=== PATIENT | male | born 1980 | race Caucasian/White ===

== ENCOUNTER 2016-12-04 08:47 | Inpatient (IN) | payer BC, OTHER ==
[~2016-12-04] VITALS: Ht 170.2 cm; Wt 65.8 kg
[2016-12-05] MEDS ORDERED: LORAZEPAM 1 MG TABLET PO PRN (17:00)
[2016-12-05] MEDS ORDERED: MIRALAX 17 GM POWD.PACK PO PRN (17:00)
[2016-12-05] MEDS ORDERED: THIAMINE HCL 200 MG/2 ML VIAL IM ONE (17:00)
[2016-12-05] MEDS ORDERED: ONDANSETRON ODT 4 MG TAB.RAPDIS SL PRN (17:00)
[2016-12-05] MEDS ORDERED: ACETAMINOPHEN 325 MG TABLET PO PRN (17:00)
[2016-12-05] MEDS ORDERED: LORAZEPAM 2 MG/1 ML VIAL IM PRN (17:00)
[2016-12-05] MEDS ORDERED: PROMETHAZINE HCL 25 MG/1 ML VIAL IM PRN (17:00)
[2016-12-05] MEDS ORDERED: LOPERAMIDE HCL 2 MG CAPSULE PO PRN ×2 (17:00)
[2016-12-05 18:00] VITALS: BP 106/63
[2016-12-05 18:05] LABS: *AMPHETAMINE, URINE NEGATIVE (NEGATIVE); *BARBITURATE, URINE NEGATIVE (NEGATIVE); *CANNABINOID, URINE NEGATIVE (NEGATIVE); *COCCAINE, URINE NEGATIVE (NEGATIVE); *OPIATE, URINE NEGATIVE (NEGATIVE); *PHENCYCLIDINE SCREEN,URINE NEGATIVE (NEGATIVE)
[2016-12-05] MEDS ORDERED: ALPR0.255 PO (18:21)
[2016-12-05] MEDS ORDERED: BISM262T18 PO (18:21)
[2016-12-05] MEDS ORDERED: GABA-534 PO (18:21)
[2016-12-05] MEDS ORDERED: DULO20CA18 PO (18:21)
[2016-12-05] MEDS ORDERED: RIFA550T PO (18:21)
[2016-12-05] MEDS ORDERED: THIA100T13 GT (18:21)
[2016-12-05] MEDS ORDERED: FOLI1TAB16 PO (18:21)
[2016-12-05] MEDS: LORAZEPAM 1 MG TABLET PO PRN ×2 (18:30→21:50)
--- NOTE | 2016-12-05 18:36 | NUR ---
PRE ADMISSION: A 36 Y O MALE ADMITTED FOR ETOH DEPENDENCE. SKIN CHECK DONE. ECCHYMOTIC AREAS TO BILATERAL ARMS FROM IV'S IN RECENT HOSPITAL STAY. NO WOUNDS NOTED. PT HAS JAUNDICED SKIN AND BILATERAL SCLERAS. HE IS TREMULOUS AND REPORTS WEAKNESS IN LEGS. HIS GAIT IS SLIGHTLY UNSTEADY. FALL PRECAUTIONS NOTED. 1:1 SITTER AT BEDSIDE FOR SAFETY. HE STATES HE DRINKS 1 LITER OF VODKA DAILY AND HAS ALCOHOL HEPATITIS AND CIRRHOSIS.HE HAS NOT DRANK SINCE 11/28/16. HE WAS HOSPITALIZED ON 11/29 UNTIL 12/03 FOR RETRACTABLE VOMITING. HE WAS PRESCRIBED XANAX ON DISCHARGE AND STATES HE HAS TAKEN 4 PILLS SINCE FRIDAY. CIWA 5. ATIVAN 1 MG PO GIVEN PRN. VSS. PT IS RESTING IN BED. WILL CONTINUE TO PROVIDE SAFE AND SUPPORTIVE ENVIRONMENT. WILL ENDORSE TO NIGHT NURSE.
[2016-12-05 18:47] LABS: HEMATOCRIT 29.9 % (40.0-50.0); HEMOGLOBIN 10.1 g/dL (14.0-18.0); MEAN CORPUSCULAR HEMOGLOBIN 34.2 uug (27.0-31.0); MEAN CORPUSCULAR HGB CONC 34 g/dL (32.0-37.0); MEAN CORPUSCULAR VOLUME 101.4 fL (82.0-92.0); PLATELET COUNT (AUTO) 94 K/uL (150-450); RED BLOOD CELL COUNT(AUTO) 2.95 MIL/uL (4.70-6.10); RED CELL DISTRIBUTION WIDTH 15.8 % (11.5-14.5); WHITE BLOOD COUNT (AUTO) 4.5 K/uL (4.0-11.2)
[2016-12-05 18:56] LABS: ALANINE AMINOTRANSFERASE 24 U/L (16-63); ALBUMIN 2.2 g/dL (3.4-5.0); ALKALINE PHOSPHATASE 295 U/L (50-136); AMYLASE 31 U/L (25-115); ASPARTATE AMINOTRANSFERASE 97 U/L (15-37); BILIRUBIN,TOTAL 10.2 mg/dL (0.2-1.0); CALCIUM 7.7 mg/dL (8.5-10.1); CARBON DIOXIDE 28 mmol/L (21-32); CHLORIDE 101 mmol/L (98-107); CREATININE 0.7 mg/dL (0.6-1.3); GFR 128 mL/min (>60); GLUCOSE 106 mg/dL (74-106); LIPASE 158 U/L (73-393); MAGNESIUM 1.3 mg/dL (1.8-2.4); POTASSIUM 3.7 mmol/L (3.5-5.1); SODIUM SERUM 135 mmol/L (136-145); TOTAL PROTEIN, SERUM 5.7 g/dL (6.4-8.2); UREA NITROGEN, BLOOD 4 mg/dL (7-18)
[2016-12-05 19:05] LABS: THYROID STIMULATING HORMONE 3.474 mIU/mL (0.358-3.740)
[2016-12-05 19:12] LABS: ETHANOL < 3 MG/DL (0-0)
[2016-12-05 19:52] LABS: BAND % (MANUAL) 3 % (0-10); EOSINOPHILS % (MANUAL) 1 % (0-8); LYMPHOCYTES % (MANUAL) 18 % (20-40); MONOCYTES % (MANUAL) 12 % (2-10); NEUTROPHILS % (MANUAL) 66 % (42-75)
[2016-12-05 19:53] LABS: ANISOCYTOSIS 1+
[2016-12-05 20:00] VITALS: BP 97/62
--- NOTE | 2016-12-05 20:10 | NUR ---
ADMISSION Received pre-admission report from day shift nurse. Pt is lying in bed resting with a 1:[address] for safety due to tremors and unsteady gait. He is a 36 yo male who [facility] today at 1745. He is A&O x4 and ambulatory. Vital signs are B/P 97/62, HR 86, RR 16, O2 sat 97%, T 98.0, pain 0/10. Pt is 5'7" and weighs 145lb. He has a PMH of alcoholic hepatitis, cirrhosis, pilonidial cyst removal x2, seizure x2 r/t ETOH w/d, and anxiety. Last seizure was in 2016. He was hospitalized in [place] from 11/29/16-12/03/16 for intractable vomiting, alcoholic hepatitis, and cirrhosis. Lung sounds clear, PERRLA, brisk capillary refill, bowel sounds present, hand civil structural engineer equal and strong, skin is intact. Skin color is jaundiced and sclera is yellow. History of Use Vodka 1 Liter per day for the past 3 months. He has a 9 year history of ETOH use. Last drank 1 Liter on 11/28/16. He was prescribed Xanax 0.25mg upon discharge from the hospital on 12/03/16 and reported taking 4 tabs total since. Treatment History [place], [place] 2016 [place], [place] [facility] [place], [place] He smokes 2 cigarettes per day. Symptoms when he doesn't use include nausea, vomiting, diarrhea, and tremors. His longest period of sobriety was 3 months and this was 6 months ago. Pt reported that he came to treatment because he wants to get sober and stay sober. He currently has anxiety, tremors and moist skin. CIWA on admission was 5. He reports that his primary care physician recently retired. His "liver specialist" is Dr. Paul at [facility]. Pt denies SI/HI. aware of patients admission. Pt was educated regarding use of the call light and questions answered. Fall and seizure precautions in place. Bed is down with call light in reach.
[2016-12-05] MEDS ORDERED: MAGNESIUM OXIDE 400 MG TABLET PO ONE (21:00)
[2016-12-05] MEDS: RIFAXIMIN 550 MG TABLET PO SCH (21:50)
--- NOTE | 2016-12-05 21:50 | NUR ---
PRN Ativan administration Pt reports feeling moderately anxious, mildly agitated, has moist skin, with slight full body tremors. CIWA score 6. PRN Ativan administered.
[2016-12-06] VITALS: BP 94/55
[2016-12-06 04:00] VITALS: BP 94/58
--- NOTE | 2016-12-06 07:25 | NUR ---
END OF SHIFT Report provided to day shift nurse. Pt is lying in bed resting with a 1:[address] for safety due to unsteady gait r/t tremors and weakness. He is A&O x4 and ambulatory. NKA, full code status, and on a regular diet. He has a PMH alcoholic hepatitis, cirrhosis, pilonidal cyst removal. Withdrawal related seizure x2 with the last one being in 2016. On admission he reported drinking vodka 1L per day for the past 3 months. He has a 9 year history of ETOH use. Pt is ordered PRN medications for management of withdrawal symptoms. Skin and sclera are jaundiced. PRN Ativan administered 1x. Last CIWA was 4. He drank 1600mL and slept for 9 hours. Fall and seizure precautions in place. Bed is down with call light in reach.
--- NOTE | 2016-12-06 07:44 | NUR ---
BEGINNING OF SHIFT Patient endorsement report received from shift mechanic nurse, all pertinent information discussed. Patient is a 36 year old male admitted on 12/05/2016 with admitting Dx: ETOH dependence. Patient with past medical history of: seizure x2 r/t withdrawal last one in 2016, etoh hepatitis, cirrhosis, and pilonidal cyst removal x2. Patient with substance use history of: etoh 1 liter of vodka per day for 3 months with history of 9 years usage. Patient currently with no ongoing taper, but has prn medications as needed for s/sx of withdrawal as ordered, , will monitor closely. As per shift mechanic patient slept for 9 hours, and received PRN: Ativan as per shift mechanic, medications were effective. Patients last ciwa score of: 4. Patient received in bed with eyes closed respirations are even and unlabored. Responsive to verbal stimuli, educated regarding plan of care for the day and medication regimen, safety measures in place, call light with in reach, will continue to monitor closely.
[2016-12-06 08:07] VITALS: BP 90/62
[2016-12-06 08:08] LABS: AMMONIA 34 umol/L (11-32)
[2016-12-06 08:14] LABS: CALCIUM 7.9 mg/dL (8.5-10.1); CARBON DIOXIDE 24 mmol/L (21-32); CHLORIDE 105 mmol/L (98-107); CREATININE 0.6 mg/dL (0.6-1.3); GFR > 130 mL/min (>60); GLUCOSE 82 mg/dL (74-106); MAGNESIUM 1.4 mg/dL (1.8-2.4); POTASSIUM 3.3 mmol/L (3.5-5.1); SODIUM SERUM 138 mmol/L (136-145); UREA NITROGEN, BLOOD 4 mg/dL (7-18)
[2016-12-06] MEDS: MULTIVITAMINS,THERAPEUTIC TABLET PO SCH (08:57)
[2016-12-06] MEDS: RIFAXIMIN 550 MG TABLET PO SCH ×2 (08:57→21:15)
[2016-12-06] MEDS: FOLIC ACID 1 MG TABLET PO SCH (08:57)
[2016-12-06] MEDS: THIAMINE HCL 100 MG TABLET PO SCH (08:58)
[2016-12-06] MEDS: LORAZEPAM 1 MG TABLET PO PRN (08:58)
--- NOTE | 2016-12-06 08:58 | NUR ---
PRN ATIVAN 0900 assessment patient presented with fine tremors, barely sweat, anxiety and mild agitation with ciwa score of: 6 as per MD orders, adminstered PRN ativan 1 mg po at 0858, will monitor effectiveness.
[2016-12-06] MEDS: DOCUSATE SODIUM 250 MG CAPSULE PO SCH (08:59)
[2016-12-06] MEDS ORDERED: TUBERCULIN,PURIF.PROT.DERIV. 5 TU/0.1 ML TEST ID ONE (09:00)
--- NOTE | 2016-12-06 09:58 | NUR ---
ATIVAN REASSESSMENT Patient reports detox medication effective at reducing withdrawal symptoms, reports feeling less anxiety, will continue to monitor closely.
[2016-12-06 12:59] VITALS: BP 94/60
[2016-12-06] MEDS: LORAZEPAM 1 MG TABLET PO SCH ×3 (13:00→21:14)
[2016-12-06] MEDS ORDERED: MAGNESIUM OXIDE 400 MG TABLET PO ONE (13:45)
[2016-12-06] MEDS ORDERED: POTASSIUM CHLORIDE 10 MEQ CAPSULE.SA PO ONE ×2 (14:00→16:00)
[2016-12-06 16:30] VITALS: BP 128/63
--- NOTE | 2016-12-06 19:11 | NUR ---
END OF SHIFT Patient alert and oriented x4, compliant with therapeutic plan of care. Patient with admitting Dx: ETOH dependence, Patient was started on a 3 day Ativan taper as ordered, taper began at 1300. Patient encouraged adequate PO fluid intake as tolerated, patient appears jaundice, sclera yellow, also reported one episode of loose stool, no episodes of N/V noted. 0900 assessment patient presented with fine tremors, barely sweats, anxiety and mild agitation with ciwa score of: 6; 1300 assessment assessment patient presented with fine tremors, barely sweats, anxiety and mild agitation with ciwa score of: 6. 1700 assessment patient presented with: fine tremors, barely sweat and anxiety with ciwa score of: 5. encouraged patient to attend group therapies/sessions to learn new coping skills to prevent relapse, patient denies SI/HI. During shift administered PRN: Ativan at 0858, Safety measures in place. Call light with in reach, will continue to monitor closely. Patient endorsement report given to mold shifter nurse, all pertinent information discussed.
--- NOTE | 2016-12-06 19:15 | NUR ---
START OF SHIFT Received 36 year old male patient admitted on 12/05/16 for ETOH dependency. Pt is full code with NKA. He reports a PMHx of seizure x2 related to withdrawal in 2016, ETOH hepatitis, cirrhosis, and pilonidal cyst removal x2. He reports using vodka 1 liter daily for 3 months. Last dose was 1 L on 11/28/16. He is placed on a 3 day Ativan taper and tolerating well. Per endorsement, pt with Mg of 1.4 and K of 3.3 which were replaced. He is on a 1:1 for unsteady gait. Pt is alert and oriented x4, breathing is even and unlabored, safety measures in place. Will continue to monitor.
[2016-12-06 20:00] VITALS: BP 96/52
[2016-12-06] MEDS: DICYCLOMINE HCL 20 MG TABLET PO PRN (21:14)
--- NOTE | 2016-12-06 21:25 | NUR ---
PRN IMODIUM Pt complains of diarrhea. PRN Imodium administered as ordered. Breathing even and unlabored, safety measures in place. Will continue to monitor
--- NOTE | 2016-12-07 | NUR ---
VITALS 0000 vitals refused by pt at beginning of shift. Pt stated, " I want to sleep." Pt lying in bed with eyes closed noted to be asleep. Respirations 16, breathing is even and unlabored, safety measures in place. Will continue to monitor. Addendum: 12/07/16 at 0236 by KAREL BROWNE RN Amended: Links added.
--- NOTE | 2016-12-07 04:00 | NUR ---
VITALS 0400 vitals refused by pt at beginning of shift. Pt stated, " I want to sleep." Pt lying in bed with eyes closed noted to be asleep. Respirations 16, breathing is even and unlabored, safety measures in place. Will continue to monitor.
--- NOTE | 2016-12-07 07:10 | NUR ---
END OF SHIFT Pt is a 36 year old male patient admitted on 12/05/16 for ETOH dependency. Pt is full code with NKA. He reports a PMHx of seizure x2 related to withdrawal in 2016, ETOH hepatitis, cirrhosis, and pilonidal cyst removal x2. He is placed on a 3 day Ativan taper and tolerating well. He is on a 1:1 for unsteady gait. He received PRN Imodium, no loose stools reported during shift. Will endorse to oncoming shift to monitor. He slept a total of 9 hrs, Intake: 1298 mL, Void: x3, BM:0, CIWA:5. Pt remains alert and oriented x4, breathing is even and unlabored, safety measures in place. Will endorse to oncoming nurse.
--- NOTE | 2016-12-07 07:58 | NUR ---
BEGINNING OF SHIFT Patient endorsement report received from boiler plant operator nurse, all pertinent information discussed. Patient is a 36 year old male admitted on 12/05/2016 with admitting Dx: ETOH dependence. Patient with past medical history of: seizure x2 r/t withdrawal last one in 2016, etoh hepatitis, cirrhosis, and pilonidal cyst removal x2. Patient with substance use history of: etoh 1 liter of vodka per day for 3 months with history of 9 years usage. Patient currently with ongoing 3 day Ativan taper as ordered, is to begin day 2 of taper, will monitor closely. As per boiler plant operator patient slept for 9 hours, and received PRN: Imodium for diarrhea as per boiler plant operator, medications were effective, no episodes of diarrhea during boiler plant operator. Patients last ciwa score of: 5. Patient received in bed with eyes closed respirations are even and unlabored. Responsive to verbal stimuli, educated regarding plan of care for the day and medication regimen, safety measures in place, call light with in reach, will continue to monitor closely.
[2016-12-07 08:10] LABS: HEMATOCRIT 29.3 % (40.0-50.0); HEMOGLOBIN 9.8 g/dL (14.0-18.0); MEAN CORPUSCULAR HEMOGLOBIN 34.1 uug (27.0-31.0); MEAN CORPUSCULAR HGB CONC 33 g/dL (32.0-37.0); MEAN CORPUSCULAR VOLUME 102.2 fL (82.0-92.0); PLATELET COUNT (AUTO) 105 K/uL (150-450); RED BLOOD CELL COUNT(AUTO) 2.86 MIL/uL (4.70-6.10); WHITE BLOOD COUNT (AUTO) 3.4 K/uL (4.0-11.2)
[2016-12-07 08:31] LABS: ALANINE AMINOTRANSFERASE 19 U/L (16-63); ALBUMIN 1.9 g/dL (3.4-5.0); ALKALINE PHOSPHATASE 266 U/L (50-136); ASPARTATE AMINOTRANSFERASE 78 U/L (15-37); BILIRUBIN,DIRECT 7.8 mg/dL (0.0-0.2); BILIRUBIN,TOTAL 8.8 mg/dL (0.2-1.0); CALCIUM 8.1 mg/dL (8.5-10.1); CARBON DIOXIDE 26 mmol/L (21-32); CHLORIDE 104 mmol/L (98-107); CREATININE 0.6 mg/dL (0.6-1.3); GFR > 130 mL/min (>60); GLUCOSE 115 mg/dL (74-106); MAGNESIUM 1.6 mg/dL (1.8-2.4); PHOSPHOROUS 2.8 mg/dL (2.5-4.9); POTASSIUM 3.9 mmol/L (3.5-5.1); SODIUM SERUM 137 mmol/L (136-145); TOTAL PROTEIN, SERUM 5.3 g/dL (6.4-8.2); UREA NITROGEN, BLOOD 3 mg/dL (7-18)
[2016-12-07] MEDS: DOCUSATE SODIUM 250 MG CAPSULE PO SCH (09:00)
[2016-12-07 09:04] VITALS: BP 93/67
[2016-12-07] MEDS: FOLIC ACID 1 MG TABLET PO SCH (09:06)
[2016-12-07] MEDS: MULTIVITAMINS,THERAPEUTIC TABLET PO SCH (09:06)
[2016-12-07] MEDS: RIFAXIMIN 550 MG TABLET PO SCH ×2 (09:07→20:46)
[2016-12-07] MEDS: LORAZEPAM 1 MG TABLET PO SCH ×3 (09:07→20:46)
[2016-12-07] MEDS: THIAMINE HCL 100 MG TABLET PO SCH (09:07)
[2016-12-07 09:14] LABS: EOSINOPHILS % (MANUAL) 4 % (0-8); LYMPHOCYTES % (MANUAL) 33 % (20-40); MONOCYTES % (MANUAL) 19 % (2-10); NEUTROPHILS % (MANUAL) 44 % (42-75); PLATELET ESTIMATE SLIGHT DECREASED
[2016-12-07 09:15] LABS: ANISOCYTOSIS 1+; HYPOCHROMASIA 1+
[2016-12-07] MEDS ORDERED: MAGNESIUM OXIDE 400 MG TABLET PO ONE (11:15)
[2016-12-07 12:15] LABS: HCV AB 0.1 s/co ratio (0.0-0.9); HEPATITIS B CORE AB, IgM Negative (Negative); HEPATITIS B SURFACE AG Negative (Negative)
[2016-12-07 14:23] VITALS: BP 95/65
[2016-12-07 17:50] VITALS: BP 91/66
--- NOTE | 2016-12-07 18:50 | NUR ---
END OF SHIFT Patient alert and oriented x4, compliant with therapeutic plan of care. Patient with admitting Dx: ETOH dependence, Patient was started on a 3 day Ativan taper as ordered, continues with day 2 of taper, well toelrated, no ASE noted. Patient encouraged adequate PO fluid intake as tolerated, patient appears jaundice, sclera yellow. 0900 assessment patient presented with fine tremors, barely sweating, and anxiety with ciwa score of: 5, 1300 assessment patient presented with fine tremors, barely sweating, and anxiety with ciwa score of: 5; 1700 assessment patient presented with fine tremors, barely sweating, and anxiety with ciwa score of: 5 encouraged patient to attend group therapies/sessions to learn new coping skills to prevent relapse, patient denies SI/HI. During shift administered no PRNs during shift. Cotninues with 1: 1 sitter for safety precautions. Patient endorsement report given to shift foreman nurse, all pertinent information discussed.
--- NOTE | 2016-12-07 19:15 | NUR ---
START OF SHIFT Received 36 year old male patient admitted on 12/05/16 for ETOH dependency. Pt is full code with NKA. He reports a PMHx of seizure x2 related to withdrawal in 2016, ETOH hepatitis, cirrhosis, and pilonidal cyst removal x2. He reports using vodka 1 liter daily for 3 months. Last dose was 1 L on 11/28/16. He is placed on a 3 day Ativan taper and tolerating well. Per endorsement, Mg was replaced. He continues on a 1:1 for unsteady gait. Pt is alert and oriented x4, breathing is even and unlabored, safety measures in place. Will continue to monitor.
[2016-12-07 20:00] VITALS: BP 96/52
--- NOTE | 2016-12-08 | NUR ---
VITALS 0000 refused by pt at beginning of shift. Pt lying in bed with eyes closed noted to be asleep. Respirations 16, breathing is even and unlabored, safety measures in place. Will continue to monitor. Addendum: 12/08/16 at 0121 by KAREL BROWNE RN Amended: Links added.
--- NOTE | 2016-12-08 04:00 | NUR ---
VITALS 0400 refused by pt at beginning of shift. Pt lying in bed with eyes closed noted to be asleep. Respirations 16, breathing is even and unlabored, safety measures in place. Will continue to monitor.
--- NOTE | 2016-12-08 07:06 | NUR ---
END OF SHIFT Pt is a 36 year old male patient admitted on 12/05/16 for ETOH dependency. Pt is full code with NKA. He reports a PMHx of seizure x2 related to withdrawal in 2016, ETOH hepatitis, cirrhosis, and pilonidal cyst removal x2. He is placed on a 3 day Ativan taper and tolerating well. He continues on a 1:1 for unsteady gait. He did not receive or request PRN medications. He slept a total of 7 hrs, Intake: 2710 mL, Void:x5 BM:x1 CIWA: 5. Pt remains alert and oriented x4, breathing is even and unlabored, safety measures in place. Endorsed to oncoming shift.
--- NOTE | 2016-12-08 07:30 | NUR ---
Start of shift note; Received report from night nurse. Patient is a 36 year old male admitted on 12/05/2016 for ETOH dependence. Patient with past medical history of: seizure x2 due to withdrawal last episode in 2016, hepatitis, cirrhosis, and pilonidal cyst removal x2. Patient with substance use history of ETOH 1 liter of vodka per day for 3 months with history of 9 years usage. Patient currently with ongoing 3 day Ativan taper as ordered, will monitor closely. Patient slept for 9 hours. Patient's last CIWA score of 5. Patient remained on 1:1 supervision for safety. Patient received in bed with eyes closed respirations are even and unlabored. Responsive to verbal stimuli, educated regarding plan of care for the day and medication regimen, safety measures in place, call light with in reach, will continue to monitor closely.
[2016-12-08 08:00] VITALS: BP 92/62
[2016-12-08 08:02] LABS: HEMATOCRIT 30.8 % (40.0-50.0); HEMOGLOBIN 10.5 g/dL (14.0-18.0); MEAN CORPUSCULAR HEMOGLOBIN 34.5 uug (27.0-31.0); MEAN CORPUSCULAR HGB CONC 34 g/dL (32.0-37.0); MEAN CORPUSCULAR VOLUME 101.2 fL (82.0-92.0); PLATELET COUNT (AUTO) 127 K/uL (150-450); RED BLOOD CELL COUNT(AUTO) 3.05 MIL/uL (4.70-6.10); RED CELL DISTRIBUTION WIDTH 16.2 % (11.5-14.5)
[2016-12-08 08:29] LABS: ALANINE AMINOTRANSFERASE 25 U/L (16-63); ALBUMIN 2.2 g/dL (3.4-5.0); ALKALINE PHOSPHATASE 278 U/L (50-136); ASPARTATE AMINOTRANSFERASE 84 U/L (15-37); BILIRUBIN,DIRECT 7.3 mg/dL (0.0-0.2); BILIRUBIN,TOTAL 8.4 mg/dL (0.2-1.0); CALCIUM 8.2 mg/dL (8.5-10.1); CARBON DIOXIDE 29 mmol/L (21-32); CHLORIDE 103 mmol/L (98-107); CREATININE 0.6 mg/dL (0.6-1.3); GFR > 130 mL/min (>60); GLUCOSE 83 mg/dL (74-106); MAGNESIUM 1.6 mg/dL (1.8-2.4); POTASSIUM 3.9 mmol/L (3.5-5.1); SODIUM SERUM 138 mmol/L (136-145); TOTAL PROTEIN, SERUM 5.7 g/dL (6.4-8.2); UREA NITROGEN, BLOOD 4 mg/dL (7-18)
[2016-12-08 08:35] LABS: FOLIC ACID 11.4 NG/ML (8.6-58.9); IRON, SERUM 96 ug/dL (50-175)
[2016-12-08 08:41] LABS: WHITE BLOOD COUNT (AUTO) 4.8 K/uL (4.0-11.2)
[2016-12-08] MEDS: DOCUSATE SODIUM 250 MG CAPSULE PO SCH ×2 (09:00→09:14)
[2016-12-08] MEDS: THIAMINE HCL 100 MG TABLET PO SCH (09:14)
[2016-12-08] MEDS: FOLIC ACID 1 MG TABLET PO SCH (09:14)
[2016-12-08] MEDS: MULTIVITAMINS,THERAPEUTIC TABLET PO SCH (09:14)
[2016-12-08] MEDS: RIFAXIMIN 550 MG TABLET PO SCH ×2 (09:14→20:59)
[2016-12-08] MEDS: LORAZEPAM 1 MG TABLET PO SCH ×2 (09:14→20:58)
[2016-12-08 12:00] VITALS: BP 98/58
[2016-12-08] MEDS ORDERED: MAGNESIUM OXIDE 400 MG TABLET PO ONE (13:00)
--- NOTE | 2016-12-08 13:18 | NUR ---
Magnesium; Magnesium Oxide 800mg PO given for supplement d/t low magnesium level.
[2016-12-08 14:06] LABS: BAND % (MANUAL) 1 % (0-10); BASOPHILS % (MANUAL) 1 % (0-2); EOSINOPHILS % (MANUAL) 2 % (0-8); LYMPHOCYTES % (MANUAL) 35 % (20-40); MONOCYTES % (MANUAL) 16 % (2-10); NEUTROPHILS % (MANUAL) 45 % (42-75)
[2016-12-08 14:07] LABS: ANISOCYTOSIS 1+; PLATELET ESTIMATE DECREASED
--- NOTE | 2016-12-08 15:05 | NUR ---
and P.T. communication; MD notified of patient's current LAB results. MD ordered repeat CBC, BMP, LFT, magnesium for tomorrow AM. Physical therapist evaluated patient, patient was educated regarding lower extremity exercises to strengthen BLE, patient verbalized understanding.
[2016-12-08 16:00] VITALS: BP 90/58
--- NOTE | 2016-12-08 18:22 | NUR ---
End of shift note; Patient is AOX4. Patient is a 36 year old male admitted on 12/05/2016 for ETOH dependence. Patient with past medical history of: seizure x2 due to withdrawal last episode in 2016, hepatitis, cirrhosis, and pilonidal cyst removal x2. Patient with substance use history of ETOH 1 liter of vodka per day for 3 months with history of 9 years usage. Patient was placed on 3 day Ativan taper as ordered, no adverse reactions noted. Patient's last CIWA score of 2. Patient remained on 1:1 supervision for safety d/t unsteady gait. Patient remained compliant with treatment plan. Safety measures in place, call light with in reach. Met all needs.
--- NOTE | 2016-12-08 19:15 | NUR ---
START OF SHIFT Received 36 year old male patient admitted on 12/05/16 for ETOH dependency. Pt is full code with KATY. He reports a PMHx of seizure x2 related to withdrawal in 2016, ETOH hepatitis, cirrhosis, and pilonidal cyst removal x2. He reports using vodka 1 liter daily for 3 months. Last dose was 1 L on 11/28/16. He is placed on a 3 day Ativan taper and tolerating well. Per endorsement, he did not receive or request PRN medications. He was evaluated by PT and continues on a 1:1 for unsteady gait. Pt is alert and oriented x4, breathing is even and unlabored, safety measures in place. Will continue to monitor.
[2016-12-08 20:00] VITALS: BP 100/55
[2016-12-08] MEDS: DICYCLOMINE HCL 20 MG TABLET PO PRN (20:58)
--- NOTE | 2016-12-09 | NUR ---
VITALS 0000 refused by pt at beginning of shift. Pt lying in bed with eyes closed noted to be asleep. Respirations 16, breathing is even and unlabored, safety measures in place. Will continue to monitor.
--- NOTE | 2016-12-09 07:18 | NUR ---
END OF SHIFT Pt is a 36 year old male patient admitted on 12/05/16 for ETOH dependency. Pt is full code with NKA. He reports a PMHx of seizure x2 related to withdrawal in 2016, ETOH hepatitis, cirrhosis, and pilonidal cyst removal x2. He is placed on a 3 day Ativan taper and tolerating well. He did not receive or request PRN medications. He slept a total of 7 hrs, Intake: 1300 mL, Void: x5, BM:0, CIWA:2. Pt remains alert and oriented x4, breathing is even and unlabored, safety measures in place. Endorsed to oncoming shift.
--- NOTE | 2016-12-09 07:30 | NUR ---
START OF SHIFT Pt is a 36 yr old male, AA&Ox3. Pt was admitted on 12/05/16 for ETOH Dependence and completed a 3 day Ativan taper as ordered. Pt is full code, regular diet and NKA. Pt has PMH of Seizures, ETOH hepatitis, and Cirrhosis. No PRN's were given during the night. Pt slept for 7 hrs. Pt remains 1:1 for unsteady gait. Pt is c/o mild anxiety but is able to cope with anxiety level. Skin is intact, warm and dry to touch. Fine tremors are seen. Pt denies any n/v. Pt c/o generalized pain 01/29. Tylenol PRN was offered but pt refused. Encouraged increase fluid intake. Safety precautions observed. Call light is within reach. Will continue to monitor.
[2016-12-09 08:00] VITALS: BP 100/61
[2016-12-09 08:27] LABS: ALBUMIN 1.8 g/dL (3.4-5.0); BILIRUBIN,DIRECT 5.9 mg/dL (0.0-0.2); BILIRUBIN,TOTAL 6.7 mg/dL (0.2-1.0); CALCIUM 7.7 mg/dL (8.5-10.1); CREATININE 0.7 mg/dL (0.6-1.3); MAGNESIUM 1.7 mg/dL (1.8-2.4); POTASSIUM 3.5 mmol/L (3.5-5.1); TOTAL PROTEIN, SERUM 5.2 g/dL (6.4-8.2)
[2016-12-09 08:30] LABS: BASOPHILS % (AUTO) 0.8 % (0.0-2.0); EOSINOPHILS # (AUTO) 0.1 K/uL (0.0-0.7); EOSINOPHILS % (AUTO) 2.1 % (0.0-7.0); HEMATOCRIT 28.2 % (40.0-50.0); HEMOGLOBIN 9.5 g/dL (14.0-18.0); LYMPHOCYTES % (AUTO) 23.2 % (20.5-51.5); MEAN CORPUSCULAR HEMOGLOBIN 34.4 uug (27.0-31.0); MEAN CORPUSCULAR HGB CONC 34 g/dL (32.0-37.0); MEAN CORPUSCULAR VOLUME 102.1 fL (82.0-92.0); MONOCYTES # (AUTO) 0.6 K/uL (0.1-1.30); MONOCYTES % (AUTO) 14.1 % (0.0-11.0); NEUTROPHILS # (AUTO) 2.5 K/uL (1.8-8.9); NEUTROPHILS % (AUTO) 59.8 % (38.5-71.5); PLATELET COUNT (AUTO) 126 K/uL (150-450); RED BLOOD CELL COUNT(AUTO) 2.77 MIL/uL (4.70-6.10); WHITE BLOOD COUNT (AUTO) 4.2 K/uL (4.0-11.2)
[2016-12-09] MEDS: DOCUSATE SODIUM 250 MG CAPSULE PO SCH (09:00)
[2016-12-09] MEDS: FOLIC ACID 1 MG TABLET PO SCH (09:18)
[2016-12-09] MEDS: THIAMINE HCL 100 MG TABLET PO SCH (09:18)
[2016-12-09] MEDS: RIFAXIMIN 550 MG TABLET PO SCH ×2 (09:18→21:31)
[2016-12-09] MEDS: MULTIVITAMINS,THERAPEUTIC TABLET PO SCH (09:18)
[2016-12-09] MEDS ORDERED: MAGNESIUM OXIDE 400 MG TABLET PO ONE (10:00)
[2016-12-09 12:00] VITALS: BP 106/71
[2016-12-09 16:00] VITALS: BP 116/78
--- NOTE | 2016-12-09 19:02 | NUR ---
END OF SHIFT Pt is a 36 yr old male, AA&Ox3. Pt was admitted on 12/05/16 for ETOH Dependence and completed a 3 day Ativan taper as ordered. Pt is full code, regular diet and NKA. Pt has PMH of Seizures, ETOH hepatitis, and Cirrhosis. Pt has been cooperative with plan of care and attended group sessions. No acute distress noted. Pt was cooperative with medication regime. No PRN's were given during the day. Pt remains 1:1 for unsteady gait. Skin is intact, warm and dry to touch. Fine tremors are seen. Pt denies any n/v.Pt denies any pain or discomfort. Last CIWA score was 4. Encouraged increase fluid intake. Safety precautions observed. Call light is within reach.
--- NOTE | 2016-12-09 19:50 | NUR ---
START OF SHIFT NOTE Received report from day shift nurse. Pt is 36 y o male, admitted on 12/05/16 for ETOH (1 liter of vodka daily for 3 months) dependence. Pt completed 3 day Ativan taper started 12/06/16 Pt in room, aaox4. Pt reports moderate anxiety, educated on deep breathing. Skin intact, warm, with minimal sweating; jaundice noted. Pt has mild tremors with arms extended. Lung sounds clear, heart rate regular. Last BM 12/09/16, pt denies n/v/d. Pt denies urinary difficulties. PMH of cirrhosis, hepatitis, withdrawal seizures. Full code, regular diet, NKA. Pt has unsteady gait, is on 1:1 observation. Pt on fall and seizure precautions. Side rails up x 2, call light within reach, bed locked in lowest position. Will continue with plan of care.
[2016-12-09 20:00] VITALS: BP 96/49
[2016-12-10] VITALS: BP 93/59
[2016-12-10] MEDS ORDERED: diphenhydrAMINE 50 MG CAPSULE PO ONE (00:30)
--- NOTE | 2016-12-10 04:00 | NUR ---
VS, CIWA Pt refused VS and CIWA assessment, state he wants to sleep and not to be bothered. Pt asleep, RR even and unlabored at 15 breaths per minute. Side rails up x 2, call light within reach, bed locked in lowest position. Will continue to monitor Addendum: 12/10/16 at 0636 by LIAN RUBIN RN Amended: Links added.
[2016-12-10] MEDS: URSODIOL 300 MG CAPSULE PO PRN (05:59)
[2016-12-10] MEDS: HYDROXYZINE PAMOATE 25 MG CAPSULE PO PRN (06:07)
--- NOTE | 2016-12-10 06:10 | NUR ---
PRN ACTIGAL NAD VISTARIL Pt awake, c/o itching and anxiety. CIWA score 6. Administered Actigall prn PO and Vistaril 25 mg PO prn as ordered for anxiety. Safety precautions in place, will continue to monitor
[2016-12-10] MEDS ORDERED: HYDROXYZINE PAMOATE 25 MG CAPSULE ONE (06:13)
--- NOTE | 2016-12-10 07:00 | NUR ---
Start of shift Endorsement given to nightshift nurse. Pt is a 36 y/o male admitted for vodka dependence. Pt has completed a 3 day Ativan taper. Pt has been scheduled to be discharged on 12/11/16. Pt is on 1:1 at this time due to unsteady gait. Pt is mildly withdrawing AEB CIWA 5. Pt reports sleeping 3 hours. PRN Vistaril was administered during nightshift. VS WNL, full code. PT is alert and oriented x4. Pt is in STABLE condition at this time. Remains compliant with medication and diet regimen. All needs have been met, All safety measures in place per hospital policy. Bed in lowest position, side rails up x2, call-light within reach. Will continue to monitor
--- NOTE | 2016-12-10 07:26 | NUR ---
END OF SHIFT NOTE Pt is 36 y o male, admitted on 12/05/16 for ETOH (1 liter of vodka daily for 3 months) dependence. Pt completed 3 day Ativan taper started 12/06/16. Withdrawal s/ included tremors, anxiety, sweating. Last CIWA 5 at 0000; VSS. Pt received prn Benadryl at 0027 for sleep, was not effective; pt slept intermittently for 3 hrs. Pt woke up at 6am with c/o itching and anxiety, was administered Actigall and Vistaril 25 mg. Both were effective. Pt currently sleeping soundly. PMH of cirrhosis, hepatitis, withdrawal seizures. Full code, regular diet, NKA. Pt has unsteady gait, is on 1:1 observation. Pt on fall and seizure precautions. Report endorsed to day shift nurse Addendum: 12/10/16 at 0727 by LIAN RUBIN RN AND REASSESSMENT OF PRN MEDS
[2016-12-10 08:00] VITALS: BP 105/63
[2016-12-10] MEDS: MULTIVITAMINS,THERAPEUTIC TABLET PO SCH (09:02)
[2016-12-10] MEDS: FOLIC ACID 1 MG TABLET PO SCH (09:02)
[2016-12-10] MEDS: DOCUSATE SODIUM 250 MG CAPSULE PO SCH (09:02)
[2016-12-10] MEDS: RIFAXIMIN 550 MG TABLET PO SCH ×2 (09:02→21:14)
[2016-12-10] MEDS: THIAMINE HCL 100 MG TABLET PO SCH (09:03)
[2016-12-10] MEDS ORDERED: URSODIOL 300 MG CAPSULE PO ONE (11:15)
[2016-12-10 12:00] VITALS: BP 102/59
[2016-12-10] MEDS ORDERED: hydrOXYzine HCL 25 MG TABLET PO PRN (13:00)
--- NOTE | 2016-12-10 14:35 | NUR ---
PRN Medication Pt reports itching all over his body and requested medication to help relief the itching. Administered Atarax per Dr. Morfin. will re-assess.
--- NOTE | 2016-12-10 15:10 | NUR ---
Medication Re-assessment Pt reports that the atarax was effective. The itching has mostly stopped.
[2016-12-10 16:00] VITALS: BP 110/68
[2016-12-10 16:34] LABS: *AMPHETAMINE, URINE NEGATIVE (NEGATIVE); *BARBITURATE, URINE NEGATIVE (NEGATIVE); *CANNABINOID, URINE NEGATIVE (NEGATIVE); *COCCAINE, URINE NEGATIVE (NEGATIVE); *OPIATE, URINE NEGATIVE (NEGATIVE); *PHENCYCLIDINE SCREEN,URINE NEGATIVE (NEGATIVE)
[2016-12-10] MEDS ORDERED: Ursodiol PO (17:22)
[2016-12-10] MEDS ORDERED: HYDR-3895 PO (17:22)
[2016-12-10] MEDS ORDERED: HYDR-500 PO (17:22)
--- NOTE | 2016-12-10 18:53 | NUR ---
End of Shift Endorsement given to nightshift nurse. Pt is a 36 y/o male admitted for vodka dependence. Pt has completed a 3 day Ativan taper. Pt has been scheduled to be discharged on 12/11/16. Pt is on 1:1 at this time due to unsteady gait. Pt is mildly withdrawing AEB CIWA 3. Pt remained in his room, did not participate in group and activities. Educated pt on deep breathing techniques. PRN Atarax was administered for itching. Intake: 1921ml, Void x4, BM x1. VS WNL, full code. PT is alert and oriented x4. Pt is in STABLE condition at this time. Remains compliant with medication and diet regimen. All needs have been met, All safety measures in place per hospital policy. Bed in lowest position, side rails up x2, call-light within reach. Will continue to monitor
--- NOTE | 2016-12-10 19:10 | NUR ---
START OF SHIFT : Pt is a 36 y/o male admitted for vodka dependence. Pt has completed a 3 day Ativan taper. Pt has been scheduled to be discharged on 12/11/16. Pt is on 1:1 at this time due to unsteady gait. Pt is mildly withdrawing AEB CIWA 3. Pt remained in his room, did not participate in group and activities. Pt is in STABLE condition at this time. Remains compliant with medication and diet regimen. All needs have been met, All safety measures in place per hospital policy. Bed in lowest position, side rails up x2, call-light within reach. Will continue to monitor
[2016-12-10 21:00] VITALS: BP 90/60
--- NOTE | 2016-12-11 06:55 | NUR ---
END OF SHIFT NOTE : Patient is AOX4. Patient is a 36 year old male admitted on 12/05/2016 for ETOH dependence. Patient with past medical history of: seizure x2 due to withdrawal last episode in 2016, hepatitis, cirrhosis, and pilonidal cyst removal x2. Patient with substance use history of ETOH 1 liter of vodka per day for 3 months with history of 9 years usage. Patient was placed on 3 day Ativan taper as ordered, no adverse reactions noted. Patient remained on 1:1 supervision for safety d/t unsteady gait. Pt remains compliant with the treatment plan. No PRNs were given during my shift. V/S remain WNL. RR=16, even and unlabored, lungs clear upon auscultation, abdomen soft and non- distended. Pt denies nausea, vomiting and diarrhea. LAST CIWA= 1 at 0400 , INTAKE= 400 ml, voided x 4, slept 6 hours. Safety measures in place : bed on lowest position with side rails x2 up for safety, call light within reach. Will continue to monitor closely and offer help.
--- NOTE | 2016-12-11 07:25 | NUR ---
Start of shift note SBAR report rcv'd. Pt was admitted for ETOH dependence. Pt has completed at 3 day ativan taper. Pt has a PMH of seizure x 2 related to withdrawal, ETOH hepatitis, cirrhosis, and a pilonidal cyst removed twice. Pt has NKA, is full code and on a regular diet. Pt was on a 1:1 for an unsteady gait, pt was asked to ambulate and demonstrated a steady gait, pt verbalized his understanding of the call light system and stated that he would call if he needed assistance. 1:1 sitter d/c'd. Pt states that he feels ready for discharge. Will continue to monitor pt. All needs addressed at this time.
[2016-12-11 08:00] VITALS: BP 105/57
[2016-12-11 08:08] LABS: *BENZODIAZEPINES Negative (Cutoff=300)
[2016-12-11] MEDS: FOLIC ACID 1 MG TABLET PO SCH (08:37)
[2016-12-11] MEDS: DOCUSATE SODIUM 250 MG CAPSULE PO SCH (08:38)
[2016-12-11] MEDS: MULTIVITAMINS,THERAPEUTIC TABLET PO SCH (08:38)
[2016-12-11] MEDS: THIAMINE HCL 100 MG TABLET PO SCH (08:38)
[2016-12-11] MEDS: RIFAXIMIN 550 MG TABLET PO SCH (08:38)
[2016-12-11] MEDS: URSODIOL 300 MG CAPSULE PO PRN (08:39)
--- NOTE | 2016-12-11 08:39 | NUR ---
PRN administration Pt c/o itching and anxiety. Administered actigall and vistaril. Will continue to monitor pt. All other needs addressed at this time.
[2016-12-11] MEDS: HYDROXYZINE PAMOATE 25 MG CAPSULE PO PRN (08:46)
--- NOTE | 2016-12-11 09:30 | NUR ---
Reassessment Pt states that his itching has relieved and that "I feel less anxious, although I am still nervous about going somewhere new". Pt states that he feels comfortable being discharged. All needs addressed at this time. Will continue to monitor pt.
--- NOTE | 2016-12-11 10:17 | NUR ---
Discharge note Pt was admitted for ETOH dependence. Pt has a CIWA of 3. VS are WNL. LBM 12/10/16. Pt denies any SI/HI. Pt states that he feels ready for discharge. Verbalized his understanding of his discharge instructions. Pt prescriptions, discharge instructions and belongings returned to pt. All needs addressed at this time. Pt ID band removed, pt ambulated off of unit with [facility], left facility via private transport for [place].
== END 2016-12-11 10:17 | disposition other institution (70) | DRG 895 ==
LOC: SRC 12-05 16:16 → EDBD 12-05 16:16
PROVIDERS: ADMIT Internal Medicine; ATTEND Internal Medicine
PROC: HZ2ZZZZ Detoxification Services for Substance Abuse Treatment (ICD-10-PCS; principal; 2016-12-05)
PROC: HZ31ZZZ Individual Counseling for Substance Abuse Treatment, Behavioral (ICD-10-PCS; 2016-12-06)
DX: F10.230 Alcohol dependence with withdrawal, uncomplicated (principal); K76.6 Portal hypertension; E87.1 Hypo-osmolality and hyponatremia; F13.230 Sedative, hypnotic or anxiolytic dependence with withdrawal, uncomplicated; K70.30 Alcoholic cirrhosis of liver without ascites; Y90.9 Presence of alcohol in blood, level not specified; F17.210 Nicotine dependence, cigarettes, uncomplicated; D69.6 Thrombocytopenia, unspecified; E83.42 Hypomagnesemia; D53.9 Nutritional anemia, unspecified; D72.819 Decreased white blood cell count, unspecified; E87.6 Hypokalemia; R26.81 Unsteadiness on feet; K70.10 Alcoholic hepatitis without ascites
CPT/HCPCS: 36415; 70030-TC; 80307; 80346; 82746; 83550; 83690; 83735; 84100; 84443; 85025; 86580; 86592; 86705; 86803; 87340; 97001; G6040-TC; Q0163